=== PATIENT | female | born 1975 | race Caucasian/White ===

== ENCOUNTER 2018-11-17 13:42 | Emergency (ER) | payer MEDICAID ==
--- NOTE | 2018-11-17 14:09 | EDM.PDOC ---
ED HPI GENERAL MEDICAL PROBLEM - General Chief Complaint: Lower Extremity Injury/Pain Stated Complaint: LEFT KNEE AND SIDE PAIN Time Seen by Provider: 11/17/18 13:44 Source of Information: Reports: Patient History Limitations: Reports: No Limitations - History of Present Illness INITIAL COMMENTS - FREE TEXT/NARRATIVE: HISTORY AND PHYSICAL: History of present illness: Patient is a 43-year-old female presents to the ED today with concern of left knee injury that occurred a few days ago. Patient states she is currently living in an RV and she had went to get out of the RV and felt a pop in her left knee and since then has had pain with walking. Patient denies any prior trauma or injury of the knee. Patient states she did not fall and she did not hit her head or lose consciousness. Patient denies any other symptoms or concerns. Patient denies fever, chills, chest pain, shortness of breath, or cough. Denies headache, neck stiff ness, change in vision, syncope, or near syncope. Denies nausea, vomiting, abdominal pain, diarrhea, constipation, or dysuria. Has not noted any blood in urine or stool. Patient has been eating and drinking appropriately. Review of systems: As per history of present illness and below otherwise all systems reviewed and negative. Past medical history: As per history of present illness and as reviewed below otherwise noncontributory. Surgical history: As per history of present illness and as reviewed below otherwise noncontributory. Social history: See social history for further information Family history: As per history of present illness and as reviewed below otherwise noncontributory. Physical exam: General: Patient is alert, oriented, and in no acute distress. Patient sitting comfortably on exam table. HEENT: Atraumatic, normocephalic, pupils equal and reactive bilaterally, negative for conjunctival pallor or scleral icterus, mucous membranes moist, TMs normal bilaterally, throat clear, neck supple, nontender, trachea midline. No drooling or trismus noted. No meningeal signs. No hot potato voice noted. Lungs: Clear to auscultation, breath sounds equal bilaterally, chest nontender. Heart: S1S2, regular rate and rhythm without overt murmur Abdomen: Soft, nondistended, nontender. Negative for masses or hepatosplenomegaly. Negative for costovertebral tenderness. Pelvis: Stable nontender. Genitourinary: Deferred. Rectal: Deferred. Skin: Intact, warm, dry. No lesions or rashes noted. Extremities: Atraumatic, negative for cords or calf pain. Neurovascular unremarkable. Neuro: Awake, alert, oriented. Cranial nerves II through XII unremarkable. Cerebellum unremarkable. Motor and sensory unremarkable throughout. Exam nonfocal. Notes: Discussed the importance for follow-up with an orthopedic provider. Voices understanding and is agreeable to plan of care. Denies any further questions or concerns at this time. Diagnostics: Knee x-ray Therapeutics: Immobilizer and crutches Prescription: Diclofenac Impression: Left knee injury Plan: 1. Rest, ice, elevate the affected extremity. You can apply ice 15 minutes on, 15 minutes off. 2. Tylenol as directed for pain management or discomfort. Take medication as prescribed. 3. Follow up with the Orthopedic provider as discussed. Return to the ED as needed and as discussed. Definitive disposition and diagnosis as appropriate pending reevaluation and review of above. Left Knee Pain Score (Numeric/FACES): 8 - Related Data Allergies Allergy/AdvReac Type Severity Reaction Status Date / Time Latex, Natural Rubber Allergy Rash Verified 11/17/18 13:54 Home Meds: Home Meds Diclofenac Sodium [Voltaren] 75 mg PO BIDMEALS PRN #10 tab.cr 11/17/18 [Rx] FLUoxetine [PROzac] 10 mg PO DAILY 11/17/18 [History] Lisinopril 20 mg PO DAILY 11/17/18 [History] Pen Needle, Diabetic [Insulin Pen Needle] 1 each ASDIRECTED 11/17/18 [History ] glipiZIDE [Glipizide] 25 gm ASDIRECTED 11/17/18 [History] Past Medical History Cardiovascular History: Reports: Hypertension Endocrine/Metabolic History: Reports: Diabetes, Type II - Infectious Disease History Infectious Disease History: Reports: None Social & Family History - Family History Family Medical History: Noncontributory - Tobacco Use Smoking Status *Q: Never Smoker Second Hand Smoke Exposure: No - Caffeine Use Caffeine Use: Reports: None - Recreational Drug Use Recreational Drug Use: No Review of Systems - Review of Systems Review Of Systems: ROS reveals no pertinent complaints other than HPI. ED EXAM, GENERAL - Physical Exam Exam: See Below (See dictation) Course - Vital Signs Last Recorded V/S: Last Vital Signs Temp 36.2 C 11/17/18 13:56 Pulse 99 11/17/18 13:56 Resp 18 11/17/18 13:56 BP 152/88 H 11/17/18 13:56 Pulse Ox 95 11/17/18 13:56 - Orders/Labs/Meds Orders: Active Orders 24 hr Category Date Time Status DME for Discharge [COMM] Stat Oth 11/17/18 14:09 Ordered Departure - Departure Time of Disposition: 15:27 Disposition: Home, Self-Care 01 Clinical Impression: Knee injury Qualifiers: Encounter type: initial encounter Laterality: left Qualified Code(s): S89.92XA - Unspecified injury of left lower leg, initial encounter - Discharge Information Prescriptions: Diclofenac Sodium [Voltaren] 75 mg PO BIDMEALS PRN #10 tab.cr PRN Reason: Pain Referrals: PCP,Not In Area [Primary Care Provider] - Forms: ED Department Discharge Additional Instructions: The following information is given to patients seen in the emergency department who are being discharged to home. This information is to outline your options for follow-up care. We provide all patients seen in our emergency department with a follow-up referral. The need for follow-up, as well as the timing and circumstances, are variable depending upon the specifics of your emergency department visit. If you don't have a primary care physician on staff, we will provide you with a referral. We always advise you to contact your personal physician following an emergency department visit to inform them of the circumstance of the visit and for follow-up with them and/or the need for any referrals to a consulting specialist. The emergency department will also refer you to a specialist when appropriate. This referral assures that you have the opportunity for follow-up care with a specialist. All of these measure are taken in an effort to provide you with optimal care, which includes your follow-up. Under all circumstances we always encourage you to contact your private physician who remains a resource for coordinating your care. When calling for follow-up care, please make the office aware that this follow-up is from your recent emergency room visit. If for any reason you are refused follow-up, please contact the [facility] Emergency Department at and asked to speak to the emergency department charge nurse. [facility] [address] [place] [id number] [facility] [address] [place] [address] [facility] - [facility] Professional Building [address] [facility] [place] [address] [address] Ashley, Orthopedist [facility] [address] [place] [address] Dr Hurtado - Dr Jewell - Dr Knutson [facility] [address] [place] [address] [facility] [address] [place] [address] 1. Rest, ice, elevate the affected extremity. You can apply ice 15 minutes on, 15 minutes off. 2. Tylenol as directed for pain management or discomfort. Take medication as prescribed. 3. Follow up with the Orthopedic provider as discussed. Return to the ED as needed and as discussed. - My Orders Last 24 Hours: My Active Orders 11/17/18 14:09 DME for Discharge [COMM] Stat - Assessment/Plan Last 24 Hours: My Active Orders 11/17/18 14:09 DME for Discharge [COMM] Stat
--- NOTE | 2018-11-17 15:25 | CR ---
Left knee: AP, lateral and sunrise patellar views left knee were obtained. Mild medial and lateral joint space narrowing is seen. No joint effusion is seen. Patellofemoral joint is within normal limits. No fracture or other abnormality is seen. Impression: Joint space narrowing. Nothing acute is appreciated on the left knee exam. Diagnostic code #2 MTDD
== END 2018-11-17 15:54 | disposition home or self-care (01) ==
LOC: MW.ED 13:42
DX: S89.92XA Unspecified injury of left lower leg, initial encounter (principal); I10 Essential (primary) hypertension; E11.9 Type 2 diabetes mellitus without complications; Z91.040 Latex allergy status; Z79.84 Long term (current) use of oral hypoglycemic drugs; Z79.899 Other long term (current) drug therapy; W22.8XXA Striking against or struck by other objects, initial encounter
CPT/HCPCS: 73562-26-LT; 73562-LT; 99283-25